=== PATIENT | male | born 1950 | race African-American/Black ===

== ENCOUNTER 2017-02-24 11:33 | Emergency (ER) | payer MEDICARE, OTHER ==
[~2017-02-24] VITALS: Ht 172.7 cm; Wt 100.9 kg
[~2017-02-24 11:33] MED LIST: LIPI10TA PO; LISI5 PO
[2017-02-24 11:40] VITALS: BP 145/97; PULSE 75; RESP 16; TEMP 98.5; O2SAT 98
[2017-02-24] MEDS ORDERED: ATOR10TA15 PO (11:52)
--- NOTE | 2017-02-24 11:54 | PD ---
HPI Chief Complaint: Musculoskeletal Complaint Time Seen by Provider: 11:53 Travel History International Travel<30 days: No Contact w/Intl Traveler<30days: No Traveled to known affect area: No History of Present Illness HPI 66-year-old male presents to the emergency room for evaluation right knee pain. Patient states approximately one month ago while working out, he injured his right knee. Since then the pain has steadily been getting worse. Pain is localized to the medial aspect without radiation. He went to his primary care physician who referred him to Dr. Vickers. Dr. Vickers told him that he needed a total knee replacement because he had severe osteoarthritis as found on x-ray. Patient is in the process of getting a second opinion and has a second referral placed to a different orthopedic surgeon in hopes that he can have an MRI. States up until now he has been applying topical creams and ointments and taking Tylenol and ibuprofen for pain which has generally been relieving his symptoms but he can no longer take the pain. He called his primary care physician 5 days ago at which time they told him they would set up a second appointment with an orthopedist and patient was waiting for the phone call but as it never came, he cannot "tough it out" any longer. He has never been prescribed narcotics for this pain. Denies paresthesias. PFSH Past Medical History Cardiovascular Problems: Yes (Pacemaker) Past Surgical History Other Surgery: Yes (left knee surgery) Social History Alcohol Use: No Tobacco Use: No Substance Use: No Allergies-Medications (Allergen,Severity, Reaction): Coded Allergies: No Known Allergies (Unverified , 02/24/17) Reported Meds & Prescriptions Reported Meds & Active Scripts Active Tramadol (Tramadol HCl) 50 Mg Tab 50 Mg PO Q8H PRN Reported Atorvastatin (Atorvastatin Calcium) 10 Mg Tab 10 Mg PO HS Review of Systems Except as stated in HPI: all other systems reviewed are Neg Physical Exam Narrative GENERAL: Well-nourished, well-developed male in no acute distress. Afebrile. Ambulatory with a cane and limp. SKIN: Focused skin assessment warm/dry. No erythema or ecchymosis. HEAD: Normocephalic. EYES: No scleral icterus. No injection or drainage. NECK: Supple, trachea midline. No JVD or lymphadenopathy. CARDIOVASCULAR: Regular rate and rhythm without murmurs, gallops, or rubs. RESPIRATORY: Breath sounds equal bilaterally. No accessory muscle use. EXTREMITY: Right knee tender to palpation over the medial aspect. Full range of motion in all joints. Moderate edema and effusion noted in the right. 2+ dorsalis pedis pulse. Data Data Last Documented VS Vital Signs Date Time Temp Pulse Resp B/P Pulse Ox O2 Delivery O2 Flow Rate FiO2 02/24/17 11:40 98.5 75 16 145/97 98 MDM Medical Decision Making Medical Screen Exam Complete: Yes Emergency Medical Condition: Yes Medical Record Reviewed: Yes Differential Diagnosis Uncontrolled pain, meniscal injury, fracture, osteoarthritis Narrative Course 66-year-old male presents to the emergency room for acute on chronic right knee pain. Pain started one month ago after injuring it while working on. Patient has seen his primary care physician and orthopedic surgeon for this. Was told he has severe osteoarthritis and needs a total knee replacement. Patient is waiting on a referral to a second orthopedist for second opinion and outpatient MRI. States while waiting, he can no longer take the pain. Physical exam reveals moderate edema and obvious effusion of the right knee. Right lower extremity is neurovascularly intact. Full range of motion. Tenderness to palpation of the medial aspect. No indication for imaging at this time. Patient was informed that it is against emergency room policy to prescribe narcotic pain medication for chronic conditions. He was told we will give him a one-time courtesy prescription until he can get into the second orthopedic surgeon. Told to follow-up with his primary care physician or return for worsening symptoms. He understands and agrees to plan. Diagnosis Primary Impression: Right knee pain Qualified Code: M25.561 - Acute pain of right knee Referrals: Orthopedist Primary Care Physician Patient Instructions: General Instructions, Knee Pain (ED) Additional Instructions: Rest and drink plenty of fluids. Takes tramadol as directed, as needed for pain. Do not drink alcohol or drive while taking this medication. Take ibuprofen with food as directed, as needed for pain. Apply ice to the affected area for 20 minutes at a time, as needed for pain and swelling. Follow-up with orthopedic surgeon. Return to the emergency room for worsening symptoms. Med/Other Pt SpecificInfo: Prescription(s) given Scripts Tramadol 50 Mg Tab50 Mg PO Q8H PRN (PAIN) #12 TAB Ref 0 Prov:Misa Griffin MD 02/24/17 Disposition: 01 DISCHARGE HOME Condition: Stable Hanna Bishop Feb 24, 2017 11:54
[2017-02-24] MEDS ORDERED: TRAM50TA PO (12:02)
== END 2017-02-24 12:20 | disposition home or self-care (01) ==
LOC: PHEFT 11:33
DX: M25.561 Pain in right knee (principal); Z95.0 Presence of cardiac pacemaker
CPT/HCPCS: 99283

== ENCOUNTER 2017-06-11 15:38 | Observation (INO) | payer MEDICARE, OTHER ==
[~2017-06-11] VITALS: Ht 172.7 cm; Wt 103.0 kg
[~2017-06-11 15:38] MED LIST changes: +ATOR10TA15 PO; -LIPI10TA PO; -LISI5 PO; +TRAM50TA PO
[2017-06-11 15:48] VITALS: BP 153/86; PULSE 105; RESP 16; TEMP 98.3; O2SAT 96
--- NOTE | 2017-06-11 16:55 | PD ---
HPI . Right leg swelling Chief Complaint: Musculoskeletal Complaint Time Seen by Provider: 16:49 Travel History International Travel<30 days: No Contact w/Intl Traveler<30days: No Traveled to known affect area: No History of Present Illness HPI 67-year-old male patient presents emergency department for evaluation of right unilateral leg swelling. Patient states he has been treated for osteoarthritis in his right knee since last January. He recently started PT. Last Sunday he noticed pain in his leg that is not resolved when sitting. Patient does not have any history of blood clots, malignancies, recent travels or hormone therapy. Patient denies any chest pain, shortness breath, fever, chills, malaise, abdominal pain, nausea, vomiting or diarrhea. PFSH Past Medical History Heart Rhythm Problems: Yes (bradycardia) Cardiovascular Problems: Yes (Pacemaker) High Cholesterol: Yes Diminished Hearing: No Immunizations Current: Yes Tetanus Vaccination: Unknown Past Surgical History Cardiac Surgery: Yes (pacemaker) Other Surgery: Yes (left knee surgery) Social History Alcohol Use: No Tobacco Use: No Substance Use: No Allergies-Medications (Allergen,Severity, Reaction): Coded Allergies: No Known Allergies (Unverified , 06/11/17) Reported Meds & Prescriptions Reported Meds & Active Scripts Active Reported Atorvastatin (Atorvastatin Calcium) 10 Mg Tab 10 Mg PO HS Review of Systems Except as stated in HPI: all other systems reviewed are Neg Physical Exam Narrative GENERAL: Well-nourished, well-developed 67-year-old male patient in no acute distress. SKIN: Focused skin assessment warm/dry. HEAD: Normocephalic. Atraumatic. EYES: No scleral icterus. No injection or drainage. NECK: Supple, trachea midline. No JVD or lymphadenopathy. CARDIOVASCULAR: Regular rate and rhythm without murmurs, gallops, or rubs. Pedal pulses palpated bilaterally. RESPIRATORY: Breath sounds equal bilaterally. No accessory muscle use. GASTROINTESTINAL: Abdomen soft, non-tender, nondistended. MUSCULOSKELETAL: 2+ non-pitting edema noted to right lower leg. BACK: Nontender without obvious deformity. No CVA tenderness. Data Data Last Documented VS Vital Signs Date Time Temp Pulse Resp B/P (MAP) Pulse Ox O2 Delivery O2 Flow Rate FiO2 06/11/17 19:34 66 16 180/98 (125) 97 06/11/17 15:48 98.3 Orders Orders Us Leg Venous Doppler (06/11/17 ) Iv Access Insert/Monitor (06/11/17 17:18) Complete Blood Count With Diff (06/11/17 17:18) Basic Metabolic Panel (Bmp) (06/11/17 17:18) Coag Profile (06/11/17 17:18) Heparin Inj (Heparin Inj) (06/11/17 19:00) Heparin-D5w 25,000 U/250 Ml (Heparin-D5w (06/11/17 19:00) Admit Order (Ed Use Only) (06/11/17 19:56) Labs Laboratory Tests Test 06/11/17 17:30 White Blood Count 8.9 TH/MM3 Red Blood Count 4.71 MIL/MM3 Hemoglobin 12.9 GM/DL Hematocrit 38.5 % Mean Corpuscular Volume 81.7 FL Mean Corpuscular Hemoglobin 27.4 PG Mean Corpuscular Hemoglobin Concent 33.5 % Red Cell Distribution Width 12.8 % Platelet Count 189 TH/MM3 Mean Platelet Volume 8.1 FL Neutrophils (%) (Auto) 65.1 % Lymphocytes (%) (Auto) 24.9 % Monocytes (%) (Auto) 7.8 % Eosinophils (%) (Auto) 1.1 % Basophils (%) (Auto) 1.1 % Neutrophils # (Auto) 5.8 TH/MM3 Lymphocytes # (Auto) 2.2 TH/MM3 Monocytes # (Auto) 0.7 TH/MM3 Eosinophils # (Auto) 0.1 TH/MM3 Basophils # (Auto) 0.1 TH/MM3 CBC Comment DIFF FINAL Differential Comment Prothrombin Time 10.2 SEC Prothromb Time International Ratio 0.9 RATIO Activated Partial Thromboplast Time 25.4 SEC Blood Urea Nitrogen 14 MG/DL Creatinine 0.87 MG/DL Random Glucose 103 MG/DL Calcium Level 8.8 MG/DL Sodium Level 137 MEQ/L Potassium Level 3.7 MEQ/L Chloride Level 103 MEQ/L Carbon Dioxide Level 28.3 MEQ/L Anion Gap 6 MEQ/L Estimat Glomerular Filtration Rate 106 ML/MIN [facility] Medical Decision Making Medical Screen Exam Complete: Yes Emergency Medical Condition: Yes Differential Diagnosis Differential diagnoses include not limited to DVT, cellulitis, contusion Narrative Course 67-year-old male patient presents emergency department for evaluation of right leg swelling and pain. Patient denies chest pain or shortness of breath. Ultrasound of his right leg ordered and pending. Ultrasound shows an extensive right lower extremity DVT extending from the central posterior tibial vein to the central femoral vein. Dr. Bocanegra assumes care of this patient. Please see his documentation for further details and disposition. Scripts Rivaroxaban (Xarelto) 15 Mg Tab 15 MG PO Q12HR for Blood Clot Prevention, #42 TAB 0 Refills Prov: Daniel Cordova 06/12/17 Amlodipine (Norvasc) 5 Mg Tab 5 MG PO DAILY for Blood Pressure Management, #30 TAB Prov: Daniel Cordova 06/12/17 Nupur Lowery Jun 11, 2017 16:55
[2017-06-11 17:41] LABS: AUTOMATED NEUTROPHIL # 5.8 TH/MM3 (1.8-7.7); BASOPHIL # 0.1 TH/MM3 (0-0.2); BASOPHIL % 1.1 % (0.0-2.0); EOSINOPHIL # 0.1 TH/MM3 (0-0.4); EOSINOPHIL % 1.1 % (0.0-4.0); HEMATOCRIT 38.5 % (39.0-51.0); HEMO FLAGS DIFF FINAL; LYMPH % 24.9 % (9.0-44.0); LYMPHOCYTE # 2.2 TH/MM3 (1.0-4.8); MEAN CELL VOLUME 81.7 FL (80.0-100.0); MEAN CORPUSCULAR HEMOGLOBIN 27.4 PG (27.0-34.0); MEAN CORPUSCULAR HGB CONC 33.5 % (32.0-36.0); MONO % 7.8 % (0.0-8.0); NEUT % 65.1 % (16.0-70.0); PLATELET COUNT 189 TH/MM3 (150-450); RED BLOOD COUNT 4.71 MIL/MM3 (4.50-5.90); RED CELL DISTRIBUTION WIDTH 12.8 % (11.6-17.2); WHITE BLOOD COUNT 8.9 TH/MM3 (4.0-11.0)
[2017-06-11 17:54] LABS: POTASSIUM 3.7 MEQ/L (3.5-5.1)
--- NOTE | 2017-06-11 17:54 | RADRPT ---
EXAM DATE/TIME: 06/11/2017 17:05 [facility] COMPARISON: No previous studies available for comparison. INDICATIONS : Right leg swelling. MEDICAL HISTORY : Hypercholesterolemia. Bradycardia. SURGICAL HISTORY : Pacemaker. Left knee orthoscopic surgery. ENCOUNTER: Initial ACUITY: 4 - 6 days PAIN SCORE: 3/10 LOCATION: Right leg. TECHNIQUE: Venous ultrasound of the leg was performed from the inguinal ligament to the proximal calf. Real-paula e, color Doppler and spectral tracing, compression and augmentation techniques were used. FINDINGS: There is extensive DVT extending from the central posterior Tibial vein to the central femoral vein. The common femoral vein and iliac vein are patent. The greater saphenous vein is patent. CONCLUSION: 1. Extensive right lower extremity DVT extending from the central posterior tibial vein to the centra l femoral vein. 2. More central common femoral and iliac veins appear patent. Chirag Lloyd MD on June 11, 2017 at 17:50 Board Certified Radiologist. This report was verified electronically.
[2017-06-11 17:57] LABS: BICARBONATE 28.3 MEQ/L (21.0-32.0)
[2017-06-11 18:00] LABS: APTT (PATIENT) 25.4 SEC (24.3-30.1); INTERNATIONAL NORMALIZED RATIO 0.9 RATIO; PROTHROMBIN TIME - PATIENT 10.2 SEC (9.8-11.6)
--- NOTE | 2017-06-11 18:49 | PD ---
Data Data Last Documented VS Vital Signs Date Time Temp Pulse Resp B/P (MAP) Pulse Ox O2 Delivery O2 Flow Rate FiO2 06/11/17 19:34 66 16 180/98 (125) 97 06/11/17 15:48 98.3 Orders Orders Us Leg Venous Doppler (06/11/17 ) Iv Access Insert/Monitor (06/11/17 17:18) Complete Blood Count With Diff (06/11/17 17:18) Basic Metabolic Panel (Bmp) (06/11/17 17:18) Coag Profile (06/11/17 17:18) Heparin Inj (Heparin Inj) (06/11/17 19:00) Heparin-D5w 25,000 U/250 Ml (Heparin-D5w (06/11/17 19:00) Admit Order (Ed Use Only) (06/11/17 19:56) Labs Laboratory Tests Test 06/11/17 17:30 White Blood Count 8.9 TH/MM3 Red Blood Count 4.71 MIL/MM3 Hemoglobin 12.9 GM/DL Hematocrit 38.5 % Mean Corpuscular Volume 81.7 FL Mean Corpuscular Hemoglobin 27.4 PG Mean Corpuscular Hemoglobin Concent 33.5 % Red Cell Distribution Width 12.8 % Platelet Count 189 TH/MM3 Mean Platelet Volume 8.1 FL Neutrophils (%) (Auto) 65.1 % Lymphocytes (%) (Auto) 24.9 % Monocytes (%) (Auto) 7.8 % Eosinophils (%) (Auto) 1.1 % Basophils (%) (Auto) 1.1 % Neutrophils # (Auto) 5.8 TH/MM3 Lymphocytes # (Auto) 2.2 TH/MM3 Monocytes # (Auto) 0.7 TH/MM3 Eosinophils # (Auto) 0.1 TH/MM3 Basophils # (Auto) 0.1 TH/MM3 CBC Comment DIFF FINAL Differential Comment Prothrombin Time 10.2 SEC Prothromb Time International Ratio 0.9 RATIO Activated Partial Thromboplast Time 25.4 SEC Blood Urea Nitrogen 14 MG/DL Creatinine 0.87 MG/DL Random Glucose 103 MG/DL Calcium Level 8.8 MG/DL Sodium Level 137 MEQ/L Potassium Level 3.7 MEQ/L Chloride Level 103 MEQ/L Carbon Dioxide Level 28.3 MEQ/L Anion Gap 6 MEQ/L Estimat Glomerular Filtration Rate 106 ML/MIN [facility] Medical Record Reviewed: Yes Supervised Visit with NANCI: Yes Narrative Course I, Dr. Bocanegra, have reviewed the advance practice practitioner's documentation and am in agreement, met with the patient face to face, made the diagnosis, and the medical decision making was done by me. *My assessment and Findings: Please review NANCI note. The patient has extensive RLE DVT. Pt will be admitted for IR thrombectomy/ thrombolysis tomorrow. Duration of symptoms: 8 days. Case d/w Dr Alvarez for radiology. CBC & BMP Diagram 06/11/17 17:30 Calcium Level 8.8 Last 24 hours Impressions Lower Extremity Ultrasound 06/11/17 0000 Signed Impressions: Service Date/Time: Sunday, June 11, 2017 17:05 - CONCLUSION: 1. Extensive right lower extremity DVT extending from the central posterior tibial vein to the central femoral vein. 2. More central common femoral and iliac veins appear patent. Chirag Lloyd MD Diagnosis Primary Impression: DVT (deep venous thrombosis) Qualified Codes: I82.411 - Acute embolism and thrombosis of right femoral vein Admitting Information Admitting Physician Requests: Observation Scripts Rivaroxaban (Xarelto) 15 Mg Tab 15 MG PO Q12HR for Blood Clot Prevention, #42 TAB 0 Refills Prov: Daniel Cordova 06/12/17 Amlodipine (Norvasc) 5 Mg Tab 5 MG PO DAILY for Blood Pressure Management, #30 TAB Prov: Daniel Cordova 06/12/17 Harry Bocanegra MD Jun 11, 2017 18:49
[2017-06-11] MEDS ORDERED: HEPARIN-D5W 25,000 U/250 ML 250 ML IV PRN (19:00)
[2017-06-11] MEDS ORDERED: HEPARIN SODIUM - IV 10,000 UNITS/10 ML VIAL IV PUSH ONE (19:00)
[2017-06-11 19:34] VITALS: BP 180/98; PULSE 66; RESP 16; O2SAT 97
[2017-06-11 20:19] VITALS: BP 158/93; PULSE 63; RESP 16; O2SAT 97
[2017-06-11] MEDS ORDERED: SODIUM CHLORIDE 0.9% FLUSH 10 ML FLUSH IV FLUSH PRN (20:30)
[2017-06-11] MEDS ORDERED: NALOXONE HCL 0.4 MG/ML AMP IV PUSH PRN (20:30)
[2017-06-11] MEDS: SODIUM CHLORIDE 0.9% FLUSH 10 ML FLUSH IV FLUSH SCH (21:00)
[2017-06-11 21:32] VITALS: BP 152/94; PULSE 63; RESP 16; TEMP 98.8; O2SAT 97
[2017-06-11 23:40] VITALS: BP 153/76; PULSE 66; RESP 18; TEMP 99.7; O2SAT 97
[2017-06-12 01:05] VITALS: PULSE 66
[2017-06-12 02:53] LABS: AUTOMATED NEUTROPHIL # 4.7 TH/MM3 (1.8-7.7); BASOPHIL # 0.1 TH/MM3 (0-0.2); BASOPHIL % 0.8 % (0.0-2.0); EOSINOPHIL # 0.1 TH/MM3 (0-0.4); EOSINOPHIL % 1.4 % (0.0-4.0); HEMATOCRIT 38.9 % (39.0-51.0); HEMO FLAGS DIFF FINAL; LYMPH % 33.4 % (9.0-44.0); LYMPHOCYTE # 2.9 TH/MM3 (1.0-4.8); MEAN CELL VOLUME 82.4 FL (80.0-100.0); MEAN CORPUSCULAR HEMOGLOBIN 27.4 PG (27.0-34.0); MEAN CORPUSCULAR HGB CONC 33.3 % (32.0-36.0); MONO % 10.5 % (0.0-8.0); NEUT % 53.9 % (16.0-70.0); PLATELET COUNT 196 TH/MM3 (150-450); RED BLOOD COUNT 4.72 MIL/MM3 (4.50-5.90); RED CELL DISTRIBUTION WIDTH 13.8 % (11.6-17.2); WHITE BLOOD COUNT 8.8 TH/MM3 (4.0-11.0)
[2017-06-12 03:03] LABS: PROTHROMBIN TIME - PATIENT 10.8 SEC (9.8-11.6)
[2017-06-12 03:32] LABS: BICARBONATE 29.6 MEQ/L (21.0-32.0)
--- NOTE | 2017-06-12 03:55 | HHI.HP ---
[facility] Daniel Michael DO Admission Diagnosis Acute RLE DVT Diagnoses: Travel History International Travel<30 Days: No Contact w/Intl Traveler <30 Da: No Traveled to Known Affected Are: No History of Present Illness last week sunday as he got up from bed and had pain on right calf suddenly , cramping called ortho doc thinking arthritis was told to call pcp and to set up to find out if he has blood clot could not see pcp till yesterday, sunday then pcp wanted US outpatient was not able to get appointment thus sent to ER then ER discussed with IR for thrombectomy no recent travels from January to now, was treated for osteoarthritis and lower lumbar compression with PT sits a lot, pressure of the seat always create discomfort there in calf- usually from 8p.m. to 630a.m (usually goes to bed at 6:30a.m. till about 2: 00p.m. nocturnal) no family hx no surgeries in that RLE recently no bleeding hx no frequent falls recently had fecal occult blood test done at pcp and was negative no chest pains no shortness of breath feels ppm kicking in more at night time - just felt light headedness Review of Systems Except as stated in HPI: all other systems reviewed are Neg Past Family Social History Past Medical History hyperlipidemia symptomatic bradycardia- s/p ppm placement- HR was 33 then Past Surgical History ppm arthroscopic left knee 1991 Reported Medications mvi coq 10 omega 3 msm- joints (chondrointin and glucosamine) green powder capsule tumeric anti oxident fruits in capsule green tea capsule hyaluronic acid beef collagen product ortho 7 fiber benefits Allergies: Coded Allergies: No Known Allergies (Unverified , 06/11/17) Family History dm runs in the family Social History denies smoking ever denies etoh use or drug abuse Physical Exam Vital Signs Vital Signs Date Time Temp Pulse Resp B/P (MAP) Pulse Ox O2 Delivery O2 Flow Rate FiO2 06/11/17 23:40 99.7 66 18 153/76 (101) 97 06/11/17 21:55 06/11/17 21:32 98.8 63 16 152/94 (113) 97 10/9/17 20:19 63 16 158/93 (114) 97 06/11/17 19:34 66 16 180/98 (125) 97 06/11/17 15:48 98.3 105 16 153/86 (108) 96 Physical Exam GENERAL: This is a well-nourished, well-developed patient, in no apparent distress. SKIN: No rashes, ecchymoses or lesions. Cool and dry. HEAD: Atraumatic. Normocephalic. No temporal or scalp tenderness. EYES: No scleral icterus. No injection or drainage. ENT: Nose without bleeding, purulent drainage or septal hematoma. Airway patent.or lymphadenopath NECK: Supple, nontender, no meningeal signs. CARDIOVASCULAR: Regular rate and rhythm without murmurs, gallops, or rubs. RESPIRATORY: Clear to auscultation. Breath sounds equal bilaterally. No wheezes , rales, or rhonchi. GASTROINTESTINAL: Abdomen soft, non-tender, nondistended. No guarding. EXTREMITIES: right calf significantly bigger than the left, no redness or warm, good peripheral pulses NEUROLOGICAL: Awake and alert. Motor and sensory grossly within normal limits. Normal speech. Laboratory Laboratory Tests Test 06/11/17 17:30 06/12/17 02:17 White Blood Count 8.9 8.8 Red Blood Count 4.71 4.72 Hemoglobin 12.9 12.9 Hematocrit 38.5 38.9 Mean Corpuscular Volume 81.7 82.4 Mean Corpuscular Hemoglobin 27.4 27.4 Mean Corpuscular Hemoglobin Concent 33.5 33.3 Red Cell Distribution Width 12.8 13.8 Platelet Count 189 196 Mean Platelet Volume 8.1 8.7 Neutrophils (%) (Auto) 65.1 53.9 Lymphocytes (%) (Auto) 24.9 33.4 Monocytes (%) (Auto) 7.8 10.5 Eosinophils (%) (Auto) 1.1 1.4 Basophils (%) (Auto) 1.1 0.8 Neutrophils # (Auto) 5.8 4.7 Lymphocytes # (Auto) 2.2 2.9 Monocytes # (Auto) 0.7 0.9 Eosinophils # (Auto) 0.1 0.1 Basophils # (Auto) 0.1 0.1 CBC Comment DIFF FINAL DIFF FINAL Differential Comment Prothrombin Time 10.2 10.8 Prothromb Time International Ratio 0.9 1.0 Activated Partial Thromboplast Time 25.4 Blood Urea Nitrogen 14 12 Creatinine 0.87 0.84 Random Glucose 103 92 Calcium Level 8.8 9.0 Sodium Level 137 139 Potassium Level 3.7 4.0 Chloride Level 103 104 Carbon Dioxide Level 28.3 29.6 Anion Gap 6 5 Estimat Glomerular Filtration Rate 106 110 Result Diagram: 06/12/177 06/12/177 Imaging Last 48 hours Impressions Lower Extremity Ultrasound 06/11/17 0000 Signed Impressions: Service Date/Time: Sunday, June 11, 2017 17:05 - CONCLUSION: 1. Extensive right lower extremity DVT extending from the central posterior tibial vein to the central femoral vein. 2. More central common femoral and iliac veins appear patent. MD Jocelyn Hay VTE Risk Assessment Jocelyn VTE Risk Assessment: Mod/High Risk (score >= 2) Caprini Risk Assessment Model Point Value = 1 Point Value = 2 Point Value = 3 Point Value = 5 Age 41-60 Minor surgery BMI > 25 kg/m2 Swollen legs Varicose veins or History of unexplained or recurrent spontaneous Oral contraceptives or hormone replacement Sepsis (< 1 month) Serious lung disease, including pneumonia (< 1 month) Abnormal pulmonary function Acute myocardial infarction Congestive heart failure (< 1 month) History of inflammatory bowel disease Medical patient at bed rest Age 61-74 Arthroscopic surgery Major open surgery (> 45 min) Laparoscopic surgery (> 45 min) Malignancy Confined to bed (> 72 hours) Immobilizing plaster cast Central venous access Age >= 75 History of VTE Family history of VTE Factor V Leiden Prothrombin [id number] Lupus anticoagulant Anticardiolipin antibodies Elevated serum homocysteine Heparin-induced thrombocytopenia Other congenital or acquired thrombophilia Stroke (< 1 month) Elective arthroplasty Hip, pelvis, or leg fracture Acute spinal cord injury (< 1 month) Prophylaxis Regimen Total Risk Factor Score Risk Level Prophylaxis Regimen 0-1 Low Early ambulation 2 Moderate Order ONE of the following: *Sequential Compression Device (SCD) *Heparin 5000 units SQ BID 3-4 Higher Order ONE of the following medications: *Heparin 5000 units SQ TID *Enoxaparin/Lovenox 40 mg SQ daily (WT < 150 kg, CrCl > 30 mL/min) *Enoxaparin/Lovenox 30 mg SQ daily (WT < 150 kg, CrCl > 10-29 mL/min) *Enoxaparin/Lovenox 30 mg SQ BID (WT < 150 kg, CrCl > 30 mL/min) AND/OR *Sequential Compression Device (SCD) 5 or more Highest Order ONE of the following medications: *Heparin 5000 units SQ TID (Preferred with Epidurals) *Enoxaparin/Lovenox 40 mg SQ daily (WT < 150 kg, CrCl > 30 mL/min) *Enoxaparin/Lovenox 30 mg SQ daily (WT < 150 kg, CrCl > 10-29 mL/min) *Enoxaparin/Lovenox 30 mg SQ BID (WT < 150 kg, CrCl > 30 mL/min) AND *Sequential Compression Device (SCD) Assessment and Plan Assessment and Plan Impression: RLE DVT - likely due to sedantary lifestyle by sitting in front of computer/ tv at night time hyperlipidemia symptomatic bradycardia- s/p ppm placement- HR was 33 then Plan : on heparin drip was transferred to [facility] per ER physician who discussed with IR stating pt would need thrombectomy for his DVT pt himself also told me that he was told of thrombectomy will consult IR for opinion anticoagulation options discussed with patient to decide post IR eval for anticoagulation choice likely 6 months duration minimum- explained resume home meds advised on researching more/ not taking herbal meds while on anticoagulants Discussed Condition With patient, ER MD Bocanegra, nursing staff Brandon Alonso MD Jun 12, 2017 03:55
[2017-06-12 04:16] VITALS: PULSE 66
[2017-06-12 04:54] LABS: APTT (PATIENT) 54.8 SEC (24.3-30.1)
[2017-06-12 07:50] VITALS: BP 160/94; PULSE 74; RESP 18; TEMP 98.8; O2SAT 96
[2017-06-12] MEDS: SODIUM CHLORIDE 0.9% FLUSH 10 ML FLUSH IV FLUSH SCH (09:00)
[2017-06-12 09:07] LABS: APTT (PATIENT) 56.9 SEC (24.3-30.1)
[2017-06-12] MEDS ORDERED: cloNIDine HCL 0.1 MG TAB PO PRN (09:15)
[2017-06-12] MEDS ORDERED: amLODIPine BESYLATE 5 MG TAB PO SCH (09:30)
[2017-06-12] MEDS ORDERED: RIVAROXABAN 20 MG TAB PO SCH (09:30)
--- NOTE | 2017-06-12 09:57 | PD.RAD ---
Radiology Note Interventional Radiology Note 67 y/o with 1 week history of right leg pain. Ultrasound 06/11/2017 documented a right lower extremity DVT. We are asked to consider thrombolysis of the DVT. Exam: 67 y/o resting comfortably. The patient states the leg has improved since last night. The right foot is moderately swollen. There is mild swelling of the Calf. The calf is soft to palpation. The upper thigh is not significantly swollen. Palpable DP pulse with good capillary refill. The right leg is warm. No evidence of compartment syndrome. A/P: The right leg does not appear threatened and has responded to heparin administration. The risk, benefits and potential complications of thrombolysis were discussed in detail with the patient. The patient was advised that due to his age, response to heparin and lack of limb threatening symptoms standard anticoagulation therapy would be recommended at this time. Harry Win MD Jun 12, 2017 09:57
[2017-06-12] MEDS ORDERED: RIVAROXABAN 15 MG TAB PO SCH (10:30)
--- NOTE | 2017-06-12 10:36 | HHI.PR ---
Subjective Remarks Follow-up for right lower extremity DVT. The patient states that he has been having right lower extremity pain due to arthritis in his back and knee since the spring. He states that he has been following with orthopedics and doing outpatient PT, but still due to this pain he is very sedentary and often sits in front of his computer for hours. He denies any prior history of blood clots. He denies any family history of blood clots. He denies any right lower extremity pain at this time. He denies any chest pain or shortness of breath. Discuss anticoagulation options and he is agreeable to start on Xarelto. His blood pressure has been a little high, states he was previously on medications for blood pressure and wants to follow-up with his talent acquisition lead for this on , agreeable to starting medications for now. Objective Vitals Vital Signs Date Time Temp Pulse Resp B/P (MAP) Pulse Ox O2 Delivery O2 Flow Rate FiO2 06/12/17 07:50 98.8 74 18 160/94 (116) 96 06/12/17 04:16 66 06/12/17 01:05 66 06/11/17 23:40 99.7 66 18 153/76 (101) 97 06/11/17 21:55 06/11/17 21:32 98.8 63 16 152/94 (113) 97 06/11/17 20:19 63 16 158/93 (114) 97 06/11/17 19:34 66 16 180/98 (125) 97 06/11/17 15:48 98.3 105 16 153/86 (108) 96 I/O 06/11/17 06/11/17 06/11/17 06/12/17 06/12/17 06/12/17 07:00 15:00 23:00 07:00 15:00 23:00 Output Total 400 ml Balance -400 ml Output Urine Total 400 ml Result Diagram: 06/12/17 0217 06/12/17216 Imaging Last Impressions Lower Extremity Ultrasound 06/11/17 0000 Signed Impressions: Service Date/Time: Sunday, June 11, 2017 17:05 - CONCLUSION: 1. Extensive right lower extremity DVT extending from the central posterior tibial vein to the central femoral vein. 2. More central common femoral and iliac veins appear patent. Chirag Lloyd MD Objective Remarks GENERAL: Well-developed well-nourished. In no acute distress. SKIN: Warm and dry. No lesions noted. HEENT: Normocephalic. Pupils equal and round. Mucous membranes pink and moist. CARDIOVASCULAR: Regular rate and rhythm. No murmur appreciated. RESPIRATORY: No accessory muscle use. Clear to auscultation. Breath sounds equal bilaterally. GASTROINTESTINAL: Abdomen soft, non-tender, nondistended. Bowel sounds x4. MUSCULOSKELETAL: Right lower extremity with 1+ edema. Calf soft and nontender to palpation. Homans negative. No clubbing or cyanosis. NEUROLOGICAL: Awake and alert. No focal neurological deficits. Moves upper and lower extremities spontaneously. Normal speech. PSYCHIATRIC: Pleasant mood and affect; insight and judgment normal. A/P Assessment and Plan 67-year-old male with past medical history of HLD who presented for right lower extremity leg swelling Acute right lower extremity DVT: Ultrasound Doppler showed extensive right lower showing a DVT extending from the central posterior tibial vein to the central femoral vein. Discussed with Dr. Naveen Win with IR, no indication for thrombolysis at this time and recommends standard treatment with anticoagulation. On heparin GTT overnight, change to Xarelto, case management to assist. Hypertension: BP not optimally controlled. Start on amlodipine and recommend patient continue follow-up with his talent acquisition lead in 2 days for dose titration as needed. Hyperlipidemia: Continue statin. Discharge Planning Discharge patient to home Condition on discharge: Improved Heart healthy Diet as tolerated Regular activity Rx written: Amlodipine, Xarelto Follow-up with primary care physician Daniel Cordova Jun 12, 2017 10:36
[2017-06-12] MEDS ORDERED: XARE15TA PO (10:38)
[2017-06-12] MEDS ORDERED: AMLO5 PO (10:38)
== END 2017-06-12 12:25 | disposition home or self-care (01) ==
LOC: PHEFT 15:38 → PHEDA 19:57 → NEPHCDU 22:41
PROVIDERS: ADMIT Hospitalist; ATTEND Hospitalist
DX: I82.401 Acute embolism and thrombosis of unspecified deep veins of right lower extremity (principal); R42 Dizziness and giddiness; R00.1 Bradycardia, unspecified; I10 Essential (primary) hypertension; E78.00 Pure hypercholesterolemia, unspecified; M46.90 Unspecified inflammatory spondylopathy, site unspecified; Z79.899 Other long term (current) drug therapy
CPT/HCPCS: 80048; 85025; 85379; 85610; 85730; 93971; 96365; 96375; G0378; J1644